=== PATIENT | female | born 1970 | race Caucasian/White ===

== ENCOUNTER 2021-08-08 11:34 | Observation (INO) | payer OTHER ==
[~2021-08-08] VITALS: Ht 172.7 cm; Wt 112.0 kg
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
[2021-08-08 13:21] LABS: BASOPHILS # (AUTO) 0.1 10^3/uL (0.0-0.1); BASOPHILS % (AUTO) 0 % (0-10); EOSINOPHILS # (AUTO) 0.2 10^3/uL (0.0-0.3); EOSINOPHILS % (AUTO) 1 % (0-10); HEMATOCRIT 46 % (35-52); HEMOGLOBIN 14.4 g/dL (11.5-16.0); LYMPHOCYTES # (AUTO) 3.1 10^3/uL (1.0-4.0); LYMPHOCYTES % (AUTO) 17 % (12-44); MEAN CORPUSCULAR HEMOGLOBIN 28 pg (25-34); MEAN CORPUSCULAR HGB CONC 32 g/dL (32-36); MEAN CORPUSCULAR VOLUME 89 fL (80-99); MONOCYTES % (AUTO) 6 % (0-12); NEUTROPHILS # (AUTO) 13.5 10^3/uL (1.8-7.8); NEUTROPHILS % (AUTO) 75 % (42-75); PLATELET COUNT 408 10^3/uL (130-400)
[2021-08-08 13:22] LABS: BILIRUBIN,URINE NEGATIVE (NEGATIVE); CLARITY,URINE CLEAR; COLOR,URINE YELLOW; GLUCOSE, URINE (UA) NEGATIVE (NEGATIVE); KETONES,URINE NEGATIVE (NEGATIVE); LEUKOCYTE ESTERASE ,URINE NEGATIVE (NEGATIVE); NITRITE,URINE NEGATIVE (NEGATIVE); PROTEIN,URINE NEGATIVE (NEGATIVE)
[2021-08-08 13:28] LABS: BACTERIA,URINE NEGATIVE /HPF
[2021-08-08] MEDS ORDERED: levothyroxine (13:37)
[2021-08-08] MEDS ORDERED: CLOP75TA69 PO (13:37)
[2021-08-08 13:43] LABS: ALANINE AMINOTRANSFERASE 12 U/L (0-55); ALBUMIN 4.2 GM/DL (3.2-4.5); ALKALINE PHOSPHATASE 95 U/L (40-136); BILIRUBIN,TOTAL 0.4 MG/DL (0.1-1.0); BUN/CREATININE RATIO 10; CALCIUM 9.7 MG/DL (8.5-10.1); CARBON DIOXIDE 27 MMOL/L (21-32); CHLORIDE 104 MMOL/L (98-107); CREATININE SERUM 0.81 MG/DL (0.60-1.30); GFR ESTIMATED 88; GLUCOSE 109 MG/DL (70-105); POTASSIUM 3.7 MMOL/L (3.6-5.0); SALICYLATE < 5.0 MG/DL (5.0-20.0); SODIUM 141 MMOL/L (135-145); TOTAL PROTEIN 7.8 GM/DL (6.4-8.2)
[2021-08-08 13:47] LABS: BAND NEUTROPHILS 0 %; NEUTROPHILS % (MANUAL) 74 %
[2021-08-08 13:48] LABS: BASOPHILS % (MANUAL) 0 %; EOSINOPHILS % (MANUAL) 1 %; LYMPHOCYTES % (MANUAL) 14 %; MONOCYTES % (MANUAL) 11 %; RBC MORPH NORMAL
[2021-08-08 13:49] LABS: AMPHETAMINE SCREEN, URINE NEGATIVE (NEGATIVE); BENZODIAZEPINES SCREEN URINE NEGATIVE (NEGATIVE); CANNABINOID SCREEN, URINE POSITIVE (NEGATIVE); COCAINE SCREEN URINE NEGATIVE (NEGATIVE)
[2021-08-08 13:50] LABS: BARBITURATE SCREEN URINE NEGATIVE (NEGATIVE); METHADONE STAT NEGATIVE (NEGATIVE); OPIATE SCREEN URINE NEGATIVE (NEGATIVE); OXYCODONE STAT NEGATIVE (NEGATIVE); PROPOXYPHENE STAT NEGATIVE (NEGATIVE); TRICYCLIC ANTIDEPRESSANTS SCRE NEGATIVE (NEGATIVE)
[2021-08-08 14:01] LABS: ACETAMINOPHEN < 10 UG/ML (10-30)
[2021-08-08 16:34] LABS: PROTHROMBIN TIME PATIENT 13.1 SEC (12.2-14.7)
--- NOTE | 2021-08-08 16:45 | Diagnostic Imaging Report ---
EXAMINATION: Chest 1 view HISTORY: Cough. COMPARISON: None available. FINDINGS: The lungs are clear without edema or pneumonia. No pleural effusion or pneumothorax. Heart size is normal. IMPRESSION: 1. Clear lungs. Dictated by: Dictated on workstation # [id number]
--- NOTE | 2021-08-08 16:55 | Diagnostic Imaging Report ---
PROCEDURE: CT head and maxillofacial without contrast. TECHNIQUE: Multiple contiguous axial images were obtained through the head and facial bones without the use of intravenous contrast. Auto Exposure Controls were utilized during the CT exam to meet ALARA standards for radiation dose reduction. INDICATION: Altered mental status CT HEAD: CT images of the head were obtained. FINDINGS: Ventricles and sulci are within normal limits for size. There is no intracranial hemorrhage identified. There is no abnormal mass effect or shift of midline structures. IMPRESSION: Unremarkable CT of the head. Maxillofacial CT: FINDINGS: No acute facial bone fracture is identified although there is an air-fluid level within the left maxillary sinus. Globes are intact. No retrobulbar hematoma is identified. There are periapical lucency involving the remaining maxillary teeth. Temporomandibular joints are intact. IMPRESSION: No acute maxillofacial abnormality is identified apart from possible acute left maxillary sinus disease. There is also poor dentition and dental consultation would be of use. Dictated by: Dictated on workstation # [id number]
[2021-08-08] MEDS ORDERED: cefTRIAXone 1 GM PRE-MIX 50 ML IV STA (17:17)
[2021-08-08] MEDS ORDERED: ACETAMINOPHEN 500 MG TAB (TYLENOL) PO PRN (18:45)
[2021-08-08] MEDS ORDERED: LORazepam 1 MG (ATIVAN) TAB PO PRN (18:45)
[2021-08-08 19:03] VITALS: BP 130/68
[2021-08-08] MEDS: NS IV 1000 ML 1,000 ML IV SCH (19:40)
[2021-08-08 23:53] VITALS: BP 127/80
[2021-08-09 04:03] VITALS: BP 112/62
[2021-08-09] MEDS: NS IV 1000 ML 1,000 ML IV SCH ×3 (05:08→16:49)
[2021-08-09 06:09] LABS: BASOPHILS # (AUTO) 0.1 10^3/uL (0.0-0.1); BASOPHILS % (AUTO) 1 % (0-10); EOSINOPHILS # (AUTO) 0.5 10^3/uL (0.0-0.3); EOSINOPHILS % (AUTO) 4 % (0-10); HEMATOCRIT 40 % (35-52); HEMOGLOBIN 12.7 g/dL (11.5-16.0); LYMPHOCYTES # (AUTO) 4.1 10^3/uL (1.0-4.0); LYMPHOCYTES % (AUTO) 32 % (12-44); MEAN CORPUSCULAR HEMOGLOBIN 28 pg (25-34); MEAN CORPUSCULAR HGB CONC 32 g/dL (32-36); MEAN CORPUSCULAR VOLUME 89 fL (80-99); MONOCYTES # (AUTO) 0.7 10^3/uL (0.0-1.0); MONOCYTES % (AUTO) 6 % (0-12); NEUTROPHILS # (AUTO) 7.5 10^3/uL (1.8-7.8); NEUTROPHILS % (AUTO) 58 % (42-75); PLATELET COUNT 324 10^3/uL (130-400); WHITE BLOOD COUNT 12.9 10^3/uL (4.3-11.0)
[2021-08-09 06:14] LABS: POTASSIUM 3.9 MMOL/L (3.6-5.0)
[2021-08-09 06:15] LABS: CALCIUM 8.8 MG/DL (8.5-10.1)
[2021-08-09 06:20] LABS: CREATININE SERUM 0.68 MG/DL (0.60-1.30)
[2021-08-09 08:20] VITALS: BP 141/90
[2021-08-09 12:04] VITALS: BP 180/90
[2021-08-09] MEDS ORDERED: ACET-2267 PO (12:31)
[2021-08-09] MEDS ORDERED: ASPI-999 PO (12:31)
[2021-08-09] MEDS ORDERED: METO50TA7 PO (12:31)
[2021-08-09] MEDS ORDERED: LEVO25TA5 PO (12:31)
[2021-08-09] MEDS ORDERED: LISI10TA25 PO (12:31)
[2021-08-09] MEDS ORDERED: ATOR80TA76 PO (12:31)
[2021-08-09] MEDS ORDERED: NAPR-1033 PO (12:31)
[2021-08-09 15:48] VITALS: BP 173/79
[2021-08-09] MEDS ORDERED: cefTRIAXone 1 GM PRE-MIX 50 ML IV SCH (17:00)
[2021-08-09 19:45] VITALS: BP 145/78
--- NOTE | 2021-08-09 20:46 | History & Physical ---
HPI History of Present Illness: 51 yo F that presented with paranoid and odd behavior. She is aware that she is paranoid and that this is not a normal way of thinking. She has been writing in a journal for the last week because of these thoughts and there are profound differences between journal entries. Patient denies any similar episodes in the past. States that she smokes MJ but has not been doing any other substances. She has been getting her MJ from the same person. No recent medication changes. Denies any psychosis in her family other then depression or anxiety. She has not been having any thoughts of grandeur or otherwise other mood changes other then thinking people are out trying to hurt her. She denies any BOWEN, neck pain or blurry vision. Normal gait. Source: patient, spouse Exam Limitations: no limitations Date seen by provider: Aug 09, 2021 Time Seen by Provider: 11:15 Attending Physician [place] PCP Admitting Physician: Diane Bess MD Attending Physician: Diane Bess MD Consult Date of Admission Aug 08, 2021 at 17:17 Home Medications Home Medications Reviewed patient Home Medication Reconciliation performed by pharmacy medication reconciliations optometric technician and/or nursing. Patients Allergies have been reviewed. Allergies Coded Allergies: No Known Drug Allergies (Unverified , 08/08/21) [id number]-[id number] Hx Patient Social History Living Status: Lives with boyfriend Smoking Status: Current Everyday Smoker Alcohol Use?: No Substance type: Marijuana Tobacco type used: Cigarettes Have you traveled recently?: No Immunizations Up To Date Influenza Vaccine Up-to-Date: No; Not Current Past Medical History HTN CAD Family Medical History Significant Family History: No Pertinent Family Hx Review of Systems (CHC) Constitutional: no symptoms reported EENTM: no symptoms reported Respiratory: no symptoms reported Cardiovascular: no symptoms reported Gastrointestinal: no symptoms reported Genitourinary: frequency : No Musculoskeletal: no symptoms reported Psychiatric/Neurological: Anxiety, Other (psychosis, paranoia) Reviewed Test Results Reviewed Test Results Lab Laboratory Tests Test 08/09/21 05:00 Range/Units White Blood Count 12.9 H 4.3-11.0 10^3/uL Red Blood Count 4.49 3.80-5.11 10^6/uL Hemoglobin 12.7 11.5-16.0 g/dL Hematocrit 40 35-52 % Mean Corpuscular Volume 89 80-99 fL Mean Corpuscular Hemoglobin 28 25-34 pg Mean Corpuscular Hemoglobin Concent 32 32-36 g/dL Red Cell Distribution Width 15.4 H 10.0-14.5 % Platelet Count 324 130-400 10^3/uL Mean Platelet Volume 10.0 9.0-12.2 fL Immature Granulocyte % (Auto) 1 % Neutrophils (%) (Auto) 58 42-75 % Lymphocytes (%) (Auto) 32 12-44 % Monocytes (%) (Auto) 6 0-12 % Eosinophils (%) (Auto) 4 0-10 % Basophils (%) (Auto) 1 0-10 % Neutrophils # (Auto) 7.5 1.8-7.8 10^3/uL Lymphocytes # (Auto) 4.1 H 1.0-4.0 10^3/uL Monocytes # (Auto) 0.7 0.0-1.0 10^3/uL Eosinophils # (Auto) 0.5 H 0.0-0.3 10^3/uL Basophils # (Auto) 0.1 0.0-0.1 10^3/uL Immature Granulocyte # (Auto) 0.1 0.0-0.1 10^3/uL Sodium Level 142 135-145 MMOL/L Potassium Level 3.9 3.6-5.0 MMOL/L Chloride Level 110 H 98-107 MMOL/L Carbon Dioxide Level 20 L 21-32 MMOL/L Anion Gap 12 5-14 MMOL/L Blood Urea Nitrogen 8 7-18 MG/DL Creatinine 0.68 0.60-1.30 MG/DL Estimat Glomerular Filtration Rate 105 BUN/Creatinine Ratio 12 Glucose Level 86 70-105 MG/DL Calcium Level 8.8 8.5-10.1 MG/DL Physical Exam-(CHC) Physical Exam Vital Signs VS - Last 72 Hours, by Label 08/08/21 08/08/21 08/08/21 08/08/21 12:21 17:58 19:03 20:00 Temp 36.7 36.7 35.9 Pulse 85 68 64 Resp 18 18 18 B/P (MAP) 148/90 (109) 126/56 130/68 (88) Pulse Ox 95 97 97 97 O2 Delivery Room Air Room Air Room Air Room Air 08/08/21 08/09/21 08/09/21 08/09/21 23:53 04:03 08:00 08:20 Temp 36.2 36.0 36.1 Pulse 69 76 72 Resp 18 18 22 B/P (MAP) 127/80 (96) 112/62 (79) 141/90 (107) Pulse Ox 98 95 95 O2 Delivery Room Air Room Air Room Air Room Air 08/09/21 08/09/21 08/09/21 12:04 15:48 19:45 Temp 36.0 36.2 36.0 Pulse 78 80 71 Resp 22 22 20 B/P (MAP) 180/90 (120) 173/79 (110) 145/78 (100) Pulse Ox 92 98 100 O2 Delivery Room Air Room Air Room Air Capillary Refill : Less Than 3 Seconds General Appearance: WD/WN, other (very anxious and jumping around the bed and room) HEENT: PERRL/EOMI Neck: non-tender, full range of motion, supple Respiratory: chest non-tender, lungs clear, normal breath sounds, no respiratory distress, no accessory muscle use Cardiovascular: normal peripheral pulses, regular rate, rhythm, no murmur Gastrointestinal: normal bowel sounds, non tender, soft Back: no CVA tenderness, no vertebral tenderness Extremities: normal range of motion, non-tender, normal inspection, no pedal edema, no calf tenderness, normal capillary refill Neurologic/Psychiatric: certified detention deputy II-XII nml as tested, alert, oriented x 3, other Assessment/Plan Assessment/Plan Admission Status: Observation (1) AMS (altered mental status) Status: Acute Assessment & Plan: - Seems to by psych in nature, CT head normal, no recent meds changes, other then MJ no other drug or EtOH use Qualifiers: Qualified Codes: R41.0 - Disorientation, unspecified (2) Leukocytosis Status: Acute Assessment & Plan: - Will continue to monitor, continue rocephin Qualifiers: Qualified Codes: D72.829 - Elevated white blood cell count, unspecified (3) HTN (hypertension) Status: Chronic Assessment & Plan: - Continue home meds Qualifiers: Qualified Codes: I10 - Essential (primary) hypertension (4) CAD (coronary artery disease) Status: Chronic Assessment & Plan: - Continue DAPT Qualifiers: Qualified Codes: I25.10 - Atherosclerotic heart disease of [place] coronary artery without angina pectoris DIANE BESS MD Aug 09, 2021 20:46
[2021-08-10 00:19] VITALS: BP 148/85
[2021-08-10] MEDS: NS IV 1000 ML 1,000 ML IV SCH ×2 (02:00→09:06)
[2021-08-10 03:16] VITALS: BP 150/94
[2021-08-10] MEDS ORDERED: LEVOTHYROXINE 25 MCG (LEVOTHROID) TAB PO SCH (06:30)
[2021-08-10 06:31] LABS: BASOPHILS # (AUTO) 0.1 10^3/uL (0.0-0.1); BASOPHILS % (AUTO) 1 % (0-10); EOSINOPHILS # (AUTO) 0.4 10^3/uL (0.0-0.3); EOSINOPHILS % (AUTO) 3 % (0-10); HEMATOCRIT 41 % (35-52); HEMOGLOBIN 12.8 g/dL (11.5-16.0); LYMPHOCYTES # (AUTO) 3.3 10^3/uL (1.0-4.0); LYMPHOCYTES % (AUTO) 27 % (12-44); MEAN CORPUSCULAR HEMOGLOBIN 28 pg (25-34); MEAN CORPUSCULAR HGB CONC 32 g/dL (32-36); MEAN CORPUSCULAR VOLUME 89 fL (80-99); MEAN PLATELET VOLUME 10.1 fL (9.0-12.2); MONOCYTES # (AUTO) 0.8 10^3/uL (0.0-1.0); MONOCYTES % (AUTO) 7 % (0-12); NEUTROPHILS # (AUTO) 7.7 10^3/uL (1.8-7.8); NEUTROPHILS % (AUTO) 63 % (42-75); PLATELET COUNT 355 10^3/uL (130-400); WHITE BLOOD COUNT 12.3 10^3/uL (4.3-11.0)
[2021-08-10 06:45] LABS: ALBUMIN 3.8 GM/DL (3.2-4.5); POTASSIUM 3.5 MMOL/L (3.6-5.0)
[2021-08-10 06:46] LABS: CALCIUM 8.9 MG/DL (8.5-10.1)
[2021-08-10 06:47] LABS: TOTAL PROTEIN 6.9 GM/DL (6.4-8.2)
[2021-08-10 06:49] LABS: BILIRUBIN,TOTAL 0.3 MG/DL (0.1-1.0)
[2021-08-10 06:51] LABS: CREATININE SERUM 0.71 MG/DL (0.60-1.30)
[2021-08-10 08:39] VITALS: BP 168/86
[2021-08-10] MEDS ORDERED: meTOproloL SUCCINATE 50 MG (TOPROL XL) TAB PO SCH (09:00)
[2021-08-10] MEDS ORDERED: CLOPIDOGREL 75 MG (PLAVIX) TABLET PO SCH (09:00)
[2021-08-10] MEDS ORDERED: ASPIRIN 81 MG CHEW (CHILDREN'S ASA) PO SCH (09:00)
[2021-08-10] MEDS ORDERED: lisINopril 10 MG (PRINIVIL) TABLET PO SCH (09:00)
[2021-08-10 12:10] VITALS: BP 174/87
--- NOTE | 2021-08-10 12:37 | Discharge Summary ---
Diagnosis/Chief Complaint Date of Admission Aug 08, 2021 at 17:17 Date of Discharge 08/10/21 Admission Diagnosis Admission Diagnosis See problem list Discharge Diagnosis See below Problems/Diagnosis: (1) AMS (altered mental status) Assessment & Plan: - Seems to by psych in nature, CT head normal, no recent meds changes, other then MJ no other drug or EtOH use 08/10: Patient screened by Psych and has an outpatient f.u appt next week Qualifiers: Qualified Codes: R41.0 - Disorientation, unspecified Status: Resolved Resolution Date/Time: 08/10/21 @ 21:19 (2) Leukocytosis Assessment & Plan: - Will continue to monitor, continue rocephin Qualifiers: Qualified Codes: D72.829 - Elevated white blood cell count, unspecified Status: Resolved Resolution Date/Time: 08/10/21 @ 21:20 (3) HTN (hypertension) Assessment & Plan: - Continue home meds 08/10: Lisinopril increased while inpatient Qualifiers: Qualified Codes: I10 - Essential (primary) hypertension Status: Chronic (4) CAD (coronary artery disease) Assessment & Plan: - Continue DAPT Qualifiers: Qualified Codes: I25.10 - Atherosclerotic heart disease of [place] coronary artery without angina pectoris Status: Chronic Chief Complaint/HPI Chief Complaint/HPI 51 yo F that presented with paranoid and odd behavior. She is aware that she is paranoid and that this is not a normal way of thinking. She has been writing in a journal for the last week because of these thoughts and there are profound differences between journal entries. Patient denies any similar episodes in the past. States that she smokes MJ but has not been doing any other substances. She has been getting her MJ from the same person. No recent medication changes. Denies any psychosis in her family other then depression or anxiety. She has not been having any thoughts of grandeur or otherwise other mood changes other then thinking people are out trying to hurt her. She denies any BOWEN, neck pain or b lurry vision. Normal gait. Discharge Summary-Simple/Stand Consultations Discharge Physical Examination Allergies: Coded Allergies: No Known Drug Allergies (Unverified , 08/08/21) Vitals & I&Os Vital Sign - Last 12Hours Date Time Temp Pulse Resp B/P (MAP) Pulse Ox O2 Delivery O2 Flow Rate FiO2 08/10/21 12:10 36.2 60 18 174/87 (116) 99 Room Air Intake and Output 08/10/21 00:00 Intake Total 1850 ml Balance 1850 ml General Appearance: Alert, Oriented X3, Cooperative, No Acute Distress HEENT: Mucous Memb Moist/[place] Respiratory: Clear to Auscultation, Normal Air Movement Cardiovascular: Regular Rate, No Murmurs Abdominal: Normal Bowel Sounds, Soft, No Tenderness, No Masses Extremities: No Edema, No Tenderness/Swelling Neuro: Normal Speech, Strength at 5/5 X4 Ext, Sensation Intact, Cranial Nerves 3-12 NL Hospital Course See final discharge diagnosis. Discharge Condition at discharge stable Instructions to patient/family Please see electronic discharge instructions given to patient. Discharge Medications Reviewed and agree with Discharge Medication list on patient's Discharge Instruction sheet DIANE KHAN MD Aug 10, 2021 12:37
[2021-08-10] MEDS ORDERED: LISI10TA25 PO (12:41)
[2021-08-10] MEDS ORDERED: CEFD300C3 PO (12:41)
--- NOTE | 2021-08-10 12:41 | Discharge Summary ---
Discharge [facility] [place] Reconcile Patient Problems Problems Reviewed?: Yes Discharge Medications New, Converted or Re-Newed RX: Transmitted to Pharmacy New Medications: Cefdinir (Cefdinir) 300 Mg Capsule 300 MG PO BID for 3 Days, #6 CAP Changed Medications: Lisinopril (Lisinopril) 10 Mg Tablet 20 MG PO DAILY, #30 TAB (Changed from: 10 MG) Continued Medications: Acetaminophen (Tylenol Extra Strength) 500 Mg Tablet 1000 MG PO Q8H PRN for PAIN-MILD (1-4), TAB Aspirin (Aspirin) 81 Mg Tab.chew 81 MG PO DAILY, TAB Atorvastatin Calcium (Atorvastatin Calcium) 80 Mg Tablet 80 MG PO HS, TAB Clopidogrel Bisulfate (Plavix) 75 Mg Tablet 75 MG PO DAILY, TAB Levothyroxine Sodium (Levothyroxine Sodium) 25 Mcg Tablet 25 MCG PO DAILY, TAB Metoprolol Succinate (Metoprolol Succinate) 50 Mg Tab.er.24h 50 MG PO DAILY, TAB Naproxen Sodium (Naproxen Sodium) 220 Mg Tablet 220-440 MG PO Q12H PRN for PAIN-MILD (1-4), TAB Patient Instructions Goal/Follow Up Appt: F.u with PCP 1-2 weeks Make sure you keep you BH appt Activity & Diet Discharge Diet: Cardiac Diet Activity as Tolerated: Yes DIANE KHAN MD Aug 10, 2021 12:41
[2021-08-10 14:24] VITALS: BP 174/87
== END 2021-08-10 13:50 | disposition home or self-care (01) ==
LOC: ER 11:38 → 4TH 17:17
PROVIDERS: ADMIT Family Medicine; ATTEND Family Medicine
DX: R41.82 Altered mental status, unspecified (principal); F17.210 Nicotine dependence, cigarettes, uncomplicated; D72.829 Elevated white blood cell count, unspecified; I10 Essential (primary) hypertension; I25.10 Atherosclerotic heart disease of native coronary artery without angina pectoris; Z79.82 Long term (current) use of aspirin; Z79.899 Other long term (current) drug therapy
CPT/HCPCS: 70450; 70486; 71045; 80048; 80053 ×2; 80306; 81000; 83880; 84443; 84484; 85007; 85025 ×2; 85027; 85610; 85730; 93005; 96361 ×3; 96376; 99283; G0378; G0480 ×3; 36415; 80320; 80329

== ENCOUNTER 2023-02-07 11:28 | Emergency (ER) | payer MEDICAID ==
[~2023-02-07] VITALS: Ht 175.3 cm; Wt 106.5 kg
[~2023-02-07 11:28] MED LIST: ACET-2267 PO; ASPI-999 PO; ATOR80TA76 PO; CEFD300C3 PO; CLOP-31 PO; LEVO25TA5 PO; LISI10TA25 PO; METO50TA7 PO; NAPR-1033 PO; levothyroxine
[2023-02-07 11:58] LABS: BASOPHILS % (AUTO) 0 % (0-10); EOSINOPHILS # (AUTO) 0.1 10^3/uL (0.0-0.3); EOSINOPHILS % (AUTO) 1 % (0-10); HEMATOCRIT 50 % (35-52); HEMOGLOBIN 16.4 g/dL (11.5-16.0); LYMPHOCYTES # (AUTO) 1.9 10^3/uL (1.0-4.0); LYMPHOCYTES % (AUTO) 20 % (12-44); MEAN CORPUSCULAR HEMOGLOBIN 30 pg (25-34); MEAN CORPUSCULAR HGB CONC 33 g/dL (32-36); MEAN CORPUSCULAR VOLUME 91 fL (80-99); MEAN PLATELET VOLUME 10.2 fL (9.0-12.2); MONOCYTES # (AUTO) 0.9 10^3/uL (0.0-1.0); MONOCYTES % (AUTO) 10 % (0-12); NEUTROPHILS # (AUTO) 6.2 10^3/uL (1.8-7.8); NEUTROPHILS % (AUTO) 69 % (42-75); PLATELET COUNT 249 10^3/uL (130-400); WHITE BLOOD COUNT 9.1 10^3/uL (4.3-11.0)
[2023-02-07] MEDS ORDERED: fentaNYL INJECTION 100 MCG/2 ML VIAL IVP ONE (12:00)
[2023-02-07] MEDS ORDERED: CLINDAMYCIN 600 MG/50 ML IVPB 50 ML IV ONE (12:00)
--- NOTE | 2023-02-07 12:04 | ED EENT ---
History of Present Illness General Stated Complaint: ABCESS IN RT EYE | Source: patient Exam Limitations: no limitations History of Present Illness Date Seen by Provider: Feb 07, 2023 Time Seen by Provider: 11:35 Initial Comments 52-year-old female presents emerged department today for abscess to her right upper dentition, swelling in her right eye. Symptoms started 2 or 3 days ago. She went to the clinic today to "get antibiotics" and was sent here. She does tell me she has a history of previous dental infection that "went to my brain." This was about 6 months ago. She is not allergic to any medications. She has had chills but no fevers. She has had some nausea without any vomiting. All other systems reviewed and negative except documented per HPI. Voice recognition software was used to help create this chart Allergies and Home Medications Allergies Coded Allergies: No Known Drug Allergies (Unverified , 08/08/21) Patient Home Medication List Home Medication List Reviewed: Yes Acetaminophen (Tylenol Extra Strength) 500 Mg Tablet, 1,000 MG PO Q8H PRN for PAIN-MILD (1-4), (Reported) Entered as Reported by: IVY KILPATRICK on 08/09/21 1231 Aspirin (Aspirin) 81 Mg Tab.chew, 81 MG PO DAILY, (Reported) Entered as Reported by: IVY KILPATRICK on 08/09/21 1231 Atorvastatin Calcium (Atorvastatin Calcium) 80 Mg Tablet, 80 MG PO HS, (Reported) Entered as Reported by: IVY KILPATRICK on 08/09/21 1231 Cefdinir (Cefdinir) 300 Mg Capsule, 300 MG PO BID Prescribed by: DIANE KHAN on 08/10/21 1241 Clopidogrel Bisulfate (Plavix) 75 Mg Tablet, 75 MG PO DAILY, (Reported) Entered as Reported by: FERMIN HAMLIN on 08/08/21 1337 Levothyroxine Sodium (Levothyroxine Sodium) 25 Mcg Tablet, 25 MCG PO DAILY, (Reported) Entered as Reported by: IVY KILPATRICK on 08/09/21 1231 Lisinopril (Lisinopril) 10 Mg Tablet, 20 MG PO DAILY Prescribed by: DIANE KHAN on 08/10/21 1241 Metoprolol Succinate (Metoprolol Succinate) 50 Mg Tab.er.24h, 50 MG PO DAILY, (Reported) Entered as Reported by: IVY KILPATRICK on 08/09/21 1231 Naproxen Sodium (Naproxen Sodium) 220 Mg Tablet, 220-440 MG PO Q12H PRN for PAIN-MILD (1-4), (Reported) Entered as Reported by: IVY KILPATRICK on 08/09/21 1231 Review of Systems Review of Systems Constitutional: see HPI Past Matxide-Vnqphq-Sledcs Hx Patient Social History Tobacco Use?: Yes Use of E-Cig and/or Vaping dev: No Substance use?: No Alcohol Use?: No Past Medical History Surgery/Hospitalization HX: hyst, gallbladder, t&a, appendix, tubal, stent in heart Family Medical History No Pertinent Family Hx Physical Exam Vital Signs Vital Signs - First Documented 02/07/23 11:41 Temp 37.5 Pulse 113 Resp 20 B/P (MAP) 160/106 (124) Pulse Ox 98 O2 Delivery Room Air Height, Weight, BMI Height: '" Weight: lbs. oz. kg; 36.88 BMI Method: General Appearance: WD/WN, no apparent distress Eyes: bilateral eye normal inspection, bilateral eye PERRL, bilateral eye EOMI Nose: normal inspection Mouth/Throat: other (Overall poor dentition, near edentulous with several decaying cavities broken off at the gumline. She has an obvious palpable and visual abscess to the right upper dentition in the area where canine teeth would be. She has some mild right-sided facial swelling.) Neck: non-tender, supple, normal inspection Cardiovascular: no murmur, tachycardia Respiratory: chest non-tender, lungs clear, normal breath sounds, no respiratory distress, no accessory muscle use Gastrointestinal: normal bowel sounds, non tender, soft Neurologic/Psychiatric: no motor/sensory deficits, alert, normal mood/affect, oriented x 3 Skin: normal color, warm/dry Progress/Results/Core Measures Results/Orders Lab Results Laboratory Tests Test 02/07/23 11:50 Range/Units White Blood Count 9.1 4.3-11.0 10^3/uL Red Blood Count 5.48 H 3.80-5.11 10^6/uL Hemoglobin 16.4 H 11.5-16.0 g/dL Hematocrit 50 35-52 % Mean Corpuscular Volume 91 80-99 fL Mean Corpuscular Hemoglobin 30 25-34 pg Mean Corpuscular Hemoglobin Concent 33 32-36 g/dL Red Cell Distribution Width 12.7 10.0-14.5 % Platelet Count 249 130-400 10^3/uL Mean Platelet Volume 10.2 9.0-12.2 fL Immature Granulocyte % (Auto) 1 % Neutrophils (%) (Auto) 69 42-75 % Lymphocytes (%) (Auto) 20 12-44 % Monocytes (%) (Auto) 10 0-12 % Eosinophils (%) (Auto) 1 0-10 % Basophils (%) (Auto) 0 0-10 % Neutrophils # (Auto) 6.2 1.8-7.8 10^3/uL Lymphocytes # (Auto) 1.9 1.0-4.0 10^3/uL Monocytes # (Auto) 0.9 0.0-1.0 10^3/uL Eosinophils # (Auto) 0.1 0.0-0.3 10^3/uL Basophils # (Auto) 0.0 0.0-0.1 10^3/uL Immature Granulocyte # (Auto) 0.1 0.0-0.1 10^3/uL Sodium Level 139 135-145 MMOL/L Potassium Level 3.5 L 3.6-5.0 MMOL/L Chloride Level 103 98-107 MMOL/L Carbon Dioxide Level 24 21-32 MMOL/L Anion Gap 12 5-14 MMOL/L Blood Urea Nitrogen 6 L 7-18 MG/DL Creatinine 0.80 0.60-1.30 MG/DL Estimat Glomerular Filtration Rate 89 BUN/Creatinine Ratio 8 Glucose Level 102 70-105 MG/DL Lactic Acid Level 1.20 0.50-2.00 MMOL/L Calcium Level 9.4 8.5-10.1 MG/DL Corrected Calcium 9.4 8.5-10.1 MG/DL Total Bilirubin 0.9 0.1-1.0 MG/DL Aspartate Amino Transf (AST/SGOT) 14 5-34 U/L Alanine Aminotransferase (ALT/SGPT) 12 0-55 U/L Alkaline Phosphatase 79 40-136 U/L Total Protein 7.7 6.4-8.2 GM/DL Albumin 4.0 3.2-4.5 GM/DL My Orders Orders - EDDIE SHARP DO Comprehensive Metabolic Panel (02/07/23 11:46) Lactic Acid Analyzer (02/07/23 11:46) Cbc And Automated Diff (02/07/23 11:46) Ct Head Wo (02/07/23 11:46) Ct Maxillofacial W (02/07/23 11:46) Clindamycin 600 Mg/50 Ml Ivpb (Clindamyc (02/07/23 12:00) Fentanyl Injection (Fentanyl Injection (02/07/23 12:00) Iohexol Injection (Omnipaque 350 Mg/Ml 1 (02/07/23 13:00) Ns (Ivpb) 100 Ml (Sodium Chloride 0.9% 1 (02/07/23 13:00) Medications Given in ED Current Medications Medications Dose Ordered Sig/Cathy Route Start Time Stop Time Status Last Admin Dose Admin Fentanyl Citrate 50 mcg ONCE ONCE IVP 02/07/23 12:00 02/07/23 12:01 DC 02/07/23 12:23 50 MCG Iohexol 100 ml ONCE ONCE IV 02/07/23 13:00 02/07/23 13:01 DC 02/07/23 12:51 75 ML Sodium Chloride 100 ml ONCE ONCE IV 02/07/23 13:00 02/07/23 13:01 DC 02/07/23 12:51 80 ML Vital Signs/I&O 02/07/23 11:41 Temp 37.5 Pulse 113 Resp 20 B/P (MAP) 160/106 (124) Pulse Ox 98 O2 Delivery Room Air Departure Communication (Admissions) Patient is hemodynamically stable. We performed bedside I&D after anesthesia with 1% lidocaine with epinephrine. Patient tolerated this well without complications. Moderate volume of purulence was drained and suctioned from the abscess cavity. No complications and no blood loss. CT scan of her face and head were obtained due to her history of spreading infection. These are negative. She has normal white blood cell count she is afebrile and nontoxic. I did give her an IV dose of clindamycin here will discharge home with p.o. clindamycin and strict return precautions. Did advise she follow-up with her dentist. Impression Primary Impression: Dental abscess Disposition: HOME, SELF-CARE Condition: Stable Departure-Patient Inst. Referrals: IVY SHAH DO (PCP/Family) Primary Care Physician Patient Instructions: Tooth Abscess ED Add. Discharge Instructions: You are seen in the emergency department today for an abscess above your tooth. This was drained in the emergency department. You are given a first dose of IV antibiotics here in the emergency department. Given your history with spread we did CT scans of your face and brain which are negative. Please take the oral antibiotics as prescribed until they are gone. Follow-up with your dentist by calling to schedule appointment. Return to the emergency department for any severe concerns. Scripts Clindamycin HCl (Clindamycin HCl) 300 Mg Capsule 300 MG PO TID for 7 Days, #21 CAP Prov: EDDIE SHARP DO 02/07/23 EDDIE SHARP DO Feb 07, 2023 12:04
[2023-02-07 12:19] LABS: BILIRUBIN,TOTAL 0.9 MG/DL (0.1-1.0); CALCIUM 9.4 MG/DL (8.5-10.1); CREATININE SERUM 0.8 MG/DL (0.60-1.30); POTASSIUM 3.5 MMOL/L (3.6-5.0); TOTAL PROTEIN 7.7 GM/DL (6.4-8.2)
--- NOTE | 2023-02-07 12:54 | Diagnostic Imaging Report ---
INDICATION: R upper dental abscess, R face swelling, h/o encephalitis. TECHNIQUE: Routine non contrast-enhanced axial images were obtained from the skull base to the vertex. Auto Exposure Controls were utilized during the CT exam to meet ALARA standards for radiation dose reduction COMPARISON: 08/08/2021. FINDINGS: The ventricles and cortical sulci are normal in size and contour. There is no midline shift or mass-effect. No acute intra-axial hemorrhage is seen. There are no abnormal areas of increased or decreased density to suggest acute hemorrhage or edema. No extra-axial masses or collections are present. The bony calvarium is intact. The visualized paranasal sinuses show moderate scattered mucosal thickening. Small amount of debris is also noted within the left maxillary sinus. The mastoid air cells are clear. IMPRESSION: 1. No acute intracranial abnormality. No CT evidence of mass, acute infarct or intracranial hemorrhage. 2. Paranasal sinus disease. Dictated by: Dictated on workstation # [id number]
[2023-02-07] MEDS ORDERED: IOHEXOL 350 MG/ML 100 ML (OMNIPAQUE 350) VIAL IV ONE (13:00)
[2023-02-07] MEDS ORDERED: NS 100 ML (IVPB) BAG IV ONE (13:00)
--- NOTE | 2023-02-07 13:07 | Diagnostic Imaging Report ---
PROCEDURE: CT maxillofacial with contrast. TECHNIQUE: After intravenous administration of contrast, axial images were obtained through the face and reformatted into coronal and sagittal planes. Auto Exposure Controls were utilized during the CT exam to meet ALARA standards for radiation dose reduction. INDICATION: Right facial swelling. COMPARISON: 08/03/2021. FINDINGS: Similar to the previous study, there is poor dentition with mild worsening. There is mural thickening within left maxillary sinus and within multiple ethmoid air cells, greater on the right. There is also mild mural thickening now present within the right frontal sinus. Globes are intact. No intraorbital fluid collection or inflammation is seen. There is subcutaneous edema or inflammation in the right cheek region. No focal fluid collection is identified. No tonsillar fluid collection is appreciated. The visualized portions of the larynx are unremarkable. Epiglottis is unremarkable in appearance. There is no prevertebral inflammation or fluid collection. Note is made of localized degenerative disc disease at C5-C6. IMPRESSION: Progression of diffuse caries in the oral cavity and mild worsening of chronic-appearing paranasal sinus disease. There is no evidence of abscess or pathologic adenopathy with probable cellulitis in the right cheek. Dictated by: Dictated on workstation # [id number]
[2023-02-07] MEDS ORDERED: CLIN-144 PO (13:16)
[2023-02-07 13:49] VITALS: BP 129/85
== END 2023-02-07 13:49 | disposition home or self-care (01) ==
LOC: EDUNIT# 11:28 → ER 11:30
DX: K04.7 Periapical abscess without sinus (principal)
CPT/HCPCS: 36415; 70450; 70487; 80053; 83605; 85025; 96374; 96375